=== PATIENT | female | born 1965 | race Caucasian/White ===

== ENCOUNTER → 2018-04-21 | Outpatient (CLI) | payer BC ==
--- NOTE | 2018-04-21 13:08 | US ---
EXAMINATION TYPE: US abdomen complete DATE OF EXAM: 04/21/2018 COMPARISON: NONE CLINICAL HISTORY: R10.11 Rt Upper Quadrant Pain. RUQ pain for a few days, patient has limited her int kaylah of food and drinking lots of water EXAM MEASUREMENTS: Liver Length: 13.8 cm Gallbladder Wall: 0.2 cm CBD: 0.3 cm Spleen: 14.9 cm Right Kidney: 11.0 x 5.2 x 6.1 cm Left Kidney: 11.9 x 5.6 x 5.9 cm large body habitus Pancreas: not seen due to bowel gas and habitus Liver: enlarged and difficult to penetrate Gallbladder: multiple stone seen with no wall thickening Evidence for sonographic Osrensen's sign: no CBD: wnl Spleen: enlarged Right Kidney: wnl Left Kidney: wnl Upper IVC: wnl Abd Aorta: unable to assess due to bowel gas and habitus tech impression given to Dr Mcgill office IMPRESSION: 1. Limited exam due to bowel gas. 2. Cholelithiasis 3. Remaining Portions of the abdomen visualized appear unremarkable.
== END | disposition home or self-care (01) ==
LOC: RADUSWWP 11:38
PROVIDERS: ATTEND Family Medicine
DX: K80.20 Calculus of gallbladder without cholecystitis without obstruction (principal)
CPT/HCPCS: 76700

== ENCOUNTER → 2018-05-04 | Outpatient (CLI) | payer BC | END | disposition home or self-care (01) | LOC: LABWHC1 12:13 | PROVIDERS: ATTEND Surgery Plastic and Reconstructive Surgery | DX: Z01.818 Encounter for other preprocedural examination (principal) | CPT/HCPCS: 36415; 93005 ==

== ENCOUNTER 2018-05-12 12:13 | Day surgery (SDC) | payer BC ==
[2018-05-09 08:50] VITALS: BMI 54.7
--- NOTE | 2018-05-12 09:39 | P.GSHP ---
History of Present Illness H&P Date: 05/12/18 CHIEF COMPLAINT: Cholecystitis HISTORY OF PRESENT ILLNESS: The patient is a 52-year-old female who presents with history of epigastric including right upper quadrant abdominal pain. She underwent diagnostic studies for her gallbladder. Separately her clinical picture was consistent with cholecystitis. Now she presents for surgical intervention. PAST MEDICAL HISTORY: Please see list PAST SURGICAL HISTORY: Please see list MEDICATIONS: Please see list ALLERGIES: Denies. SOCIAL HISTORY: No illicit drug use FAMILY HISTORY: Pertinent for gallbladder disease REVIEW OF ORGAN SYSTEMS: CONSTITUTIONAL: No reports of fevers or chills. HEENT: Denies any troubles with the vision or hearing. RESPIRATORY: No recent pneumonias. CARDIOVASCULAR: Denies chest pain or palpitations GI: No blood in stools or constipation. MUSCULOSKELETAL: Has occasional joint pain including back pain. NEURO: No seizure disorders or headaches. No recent stroke. PSYCH: No depression or suicidal ideation. HEMATOLOGIC: No personal or family history of DVTs or pulmonary emboli. PHYSICAL EXAM: VITAL SIGNS: Afebrile vital signs stable GENERAL: Well-developed pleasant in no acute distress. HEENT: No scleral icterus. Extraocular movements grossly intact. Moist buccal mucosa. NECK: Supple without lymphadenopathy. CHEST: Unlabored respirations. Equal bilateral excursions. CARDIOVASCULAR: Regular rate regular rhythm rhythm. Distal 2+ pulses. ABDOMEN: Soft, nondistended. Tender along the epigastrium and right upper quadrant. MUSCULOSKELETAL: No clubbing, cyanosis, or edema. NEURO: Cranial nerves II to XII within normal limits. No focal or lateralizing signs. PSYCH: Alert and oriented to person, place and time. ASSESSMENT: 1. Epigastric and right upper quadrant abdominal pain 2. Chronic cholecystitis 3. Symptomatic gallstones. PLAN: 1. Will need a robotic cholecystectomy possible open. Benefits and risks were described. 2. Heparin for DVT prophylaxis 5000 units. 3. Antibiotic prophylaxis. Past Medical History Past Medical History: Eye Disorder, Sleep Apnea/CPAP/BIPAP Additional Past Medical History / Comment(s): Bilateral glaucoma, recent SOB and difficulty swallowing due to sinus infection, finishing antibiotic today, feeling better, Dr Whiteside aware. Has CPAP but not using. History of Any Multi-Drug Resistant Organisms: None Reported Past Surgical History: No Surgical Hx Reported, Orthopedic Surgery Additional Past Surgical History / Comment(s): Colonoscopy, bone spurs removed from right heel, bilateral carpal tunnel surgery. Past Anesthesia/Blood Transfusion Reactions: No Reported Reaction Past Psychological History: No Psychological Hx Reported Smoking Status: Never smoker Past Alcohol Use History: None Reported Past Drug Use History: None Reported - Past Family History Mother Family Medical History: Cancer Additional Family Medical History / Comment(s): Leukemia Father Family Medical History: Myocardial Infarction ([place]) Brother(s) Family Medical History: Diabetes Mellitus, Hyperlipidemia Sister(s) Family Medical History: COPD, Diabetes Mellitus Additional Family Medical History / Comment(s): Depression Medications and Allergies Home Medications Medication Instructions Recorded Confirmed Type Bimatoprost [Lumigan] 1 drop BOTH EYES BID 06/11/14 05/09/18 History Brimonidine Tartrate [Alphagan P] 1 drop BOTH EYES HS 06/11/14 05/09/18 History Clarithromycin 500 mg PO Q12H 05/09/18 05/09/18 History Allergies Allergy/AdvReac Type Severity Reaction Status Date / Time Penicillins Allergy Rash/Hives Verified 05/09/18 08:39 sulfamethoxazole Allergy Rapid Verified 05/09/18 08:39 [From Bactrim] Heart Rate
[~2018-05-12 12:13] MED LIST: ACETAMINOPHEN IV (For NPO) 1,000 MG in EMPTY BAG 1 BAG IVPB ONE; DEXAMETHASONE SOD PHOSPHATE 10 MG/ML 1 ML VIAL IV ONE; HEPARIN SODIUM,PORCINE 5,000 UNIT/ML 1 ML VIAL SQ ONE; INDOCYANINE GREEN 25 MG VIAL IV STA; LACTATED RINGERS 1,000 ML IV SCH; MIDAZOLAM 2 MG/2 ML VIAL IV PRN; ONDANSETRON 4 MG/2 ML VIAL IVP ONE; SCOPOLAMINE 1.5MG/72HR PATCH TRANSDERM ONE; SCOPOLAMINE 1.5MG/72HR PATCH TRANSDERM STA; fentaNYL (PF) 50 MCG/ML 2 ML AMP IV PRN
[2018-05-12] MEDS ORDERED: LIDOCAINE 1% 20 ML VIAL (10MG/ML) FOR IV START INTRADERMA ONE ×2 (14:27)
[2018-05-12 14:32] LABS: Basophils % (A) 0 %; Eosinophils # (A) 0.1 k/uL (0-0.7); Eosinophils % (A) 1 %; HGB 12.3 gm/dL (11.4-16.0); Lymphocytes # (A) 1.5 k/uL (1.0-4.8); Lymphocytes % (A) 25 %; MCHC 32.4 g/dL (31.0-37.0); MCV 77.2 fL (80.0-100.0); Mean Platelet Volume 6.8; Monocytes # (A) 0.4 k/uL (0-1.0); Monocytes % (A) 6 %; Neutrophils % (A) 66 %; Platelet Count 312 k/uL (150-450); RBC 4.92 m/uL (3.80-5.40); RDW 13.9 % (11.5-15.5); WBC 6.1 k/uL (3.8-10.6)
[2018-05-12 14:42] LABS: ALT 49 U/L (9-52); AST 39 U/L (14-36); Albumin 4.5 g/dL (3.5-5.0); Alkaline Phosphatase 73 U/L (38-126); Anion Gap 11 mmol/L; Blood Urea Nitrogen 8 mg/dL (7-17); Calcium 9.5 mg/dL (8.4-10.2); Carbon Dioxide 27 mmol/L (22-30); Chloride 104 mmol/L (98-107); Glucose 97 mg/dL (74-99); Potassium 4.1 mmol/L (3.5-5.1); Sodium 142 mmol/L (137-145); Total Bilirubin 0.3 mg/dL (0.2-1.3); Total Protein 7.1 g/dL (6.3-8.2)
[2018-05-12] MEDS ORDERED: SUCCINYLCHOLINE CHLORIDE 100 MG/5 ML SYR IV ONE (15:49)
[2018-05-12] MEDS ORDERED: fentaNYL (PF) 50 MCG/ML 2 ML AMP ONE (15:49)
[2018-05-12] MEDS ORDERED: PROPOFOL 10 MG/ML 20 ML VIAL IV ONE (15:49)
[2018-05-12] MEDS ORDERED: LIDOCAINE 1% INJ 10MG/ML (20 ML MDV) ONE (15:49)
[2018-05-12] MEDS ORDERED: HYDROmorphone (PF) 1 MG/ML ONE (15:49)
[2018-05-12] MEDS ORDERED: VECURONIUM 10 MG VIAL IV ONE (15:49)
[2018-05-12] MEDS ORDERED: LACTATED RINGERS 1,000 ML IV ONE (15:49)
[2018-05-12] MEDS ORDERED: GLYCOPYRROLATE 0.2 MG/ML 2 ML VIAL ONE (15:49)
[2018-05-12] MEDS ORDERED: MIDAZOLAM 2 MG/2 ML VIAL ONE (15:49)
[2018-05-12] MEDS ORDERED: NEOSTIGMINE 1 MG/ML 10 ML VIAL ONE (15:49)
[2018-05-12] MEDS ORDERED: LIDOCAINE 1% INJ 10MG/ML (20 ML MDV) SQ ONE (16:13)
--- NOTE | 2018-05-12 18:20 | P.OP ---
Date of Procedure: 05/12/18 Description of Procedure: SURGEON: MCKENZIE SCHMIDT MD PREOPERATIVE DIAGNOSES: 1. Symptomatic gallstones 2. Cholecystitis 3. Morbid obesity due to excess calories, BMI 54.8 4. Obstructive sleep apnea POSTOPERATIVE DIAGNOSES: 1. Symptomatic gallstones 2. Acute gangrenous cholecystitis due to cystic duct obstruction 3. Morbid obesity due to excess calories, BMI 54.8 4. Obstructive sleep apnea 5. Severe hepatomegaly adding complexity to the case 6. Fatty liver disease OPERATION: Robotic-assisted da Joel Xi laparoscopic cholecystectomy, multiport with FIREFLY ESTIMATED BLOOD LOSS: 10 mL. SPECIMENS REMOVED: Gallbladder, anaerobic and aerobic culture COMPLICATIONS: None. OPERATIVE FINDINGS: 1. Severe hepatomegaly adding complexity to the case 2. Moderate intrahepatic gallbladder 3. Contaminated case 4. Cholecystectomy performed at infundibulum with 45 mm green robotic stapler load 5. Gangrenous gallbladder wall along the hepatic bed requiring dome down technique for resection INDICATIONS: The patient is a 52-year-old female who presents with symptomatic gallstones. Surgical intervention with a laparoscopic cholecystectomy was described at length including injury to the biliary tree, bleeding, infection, need for further surgery. Informed consent was obtained. Robotic assisted laparoscopic approach was described. Benefits and risks of the procedure including but not limited to bleeding, infection, injury to the biliary tree was described. Informed consent was obtained. DESCRIPTION OF PROCEDURE: Patient was brought to the operating room, placed in supine position. After general induction, the abdomen had been prepped and draped in standard sterile fashion. The robotic da Joel XI system was primed. After a timeout protocol was performed, the patient had been prepped and draped in standard sterile fashion. The patient was injected with indocyanine green. A 5 mm 0 degrees laparoscopic trocar entry was performed along the left upper quadrant. The abdomen insufflated to 15 mmHg pressure which she tolerated well. Diagnostic laparoscopy demonstrated no injury to bowel viscera or mesentery. Severe hepatomegaly with fatty liver disease was identified as the gallbladder was completely obscured. Moderate intra-abdominal omental fat was found. Next, two 8 mm robotic ports were placed along the right upper abdomen. The camera 8-mm port was maintained along the epigastrium. Another 8 mm port was placed along the left upper abdominal wall after exchanging the 5 mm port. Please note that the ports were placed at least 10 to 15 cm away from the target anatomy of the gallbladder. The robot was docked along the left lateral abdomen. The patient was repositioned in reverse Trendelenburg position at 20 degrees. Using a grasper for arm 3, a grasper for arm 4, including hook cautery for arm 1 , the robotic system was docked and primed as described. Instruments were interchanged by the assistant grocery including hook cautery, Bovie cautery and clip appliers. I had sat at the console. Adhesions were identified along the infundibulum of the gallbladder and addressed using hook cautery. The severe hepatomegaly and fatty liver disease prohibited retraction of the gallbladder over the dome of the liver. Separately, a very contracted gallbladder wall with acute cholecystitis and gangrenous added complexity to her case over 45 minutes. The right liver edge was retracted portion abdominal wall. The cystic structures were completely obscured with edematous infundibulum and fatty tissue. A dome down technique was performed removing the gallbladder from the hepatic fossa. Additionally the gallbladder was intrahepatic adding complexity to her case. Iatrogenic decompression of the gallbladder occurred. A gangrenous posterior wall of the gallbladder was confirmed. The gallbladder was mobilized to the infundibulum. The port along the left upper quadrant was exchanged for a 12 mm port. A green 45 mm robotic stapler was used to divide the gallbladder at the infundibulum. Electro-Bovie cautery was used to remove the gallbladder from the hepatic fossa. Hemostasis was checked and found to be adequate. The abdomen was irrigated with 1 L normal saline until solution was clear. The robot was undocked. I re-scrubbed into the case. Using a 10 mm Endo Catch bag via the left upper quadrant incision, the specimen was removed from the abdominal cavity. All pneumoperitoneum instruments were evacuated from the abdominal cavity. The incisions were reapproximated using 4-0 Monocryl in an interrupted subcuticular fashion. Fascial defects were less than 8 mm in size. Please note along the trocar sites, local anesthetic was placed as a field block prior to insertion of all instruments. The skin was cleansed with dilute hydrogen peroxide. Liquid glue was applied to the skin. Optifoam dressing was placed along the left upper quadrant. At the end of the procedure needle, sponge, and instrument count had been verified correct by the surgical resident. The patient was transferred to postanesthesia care unit in stable condition. Intraoperative findings were described to the patient's family whereby she will be on prolonged antibiotics. Console time 70 minutes Plan - Discharge Summary Discharge Rx Participant: Yes New Discharge Prescriptions: New HYDROcodone/APAP 5-325MG [[place] 5-325] 1 tab PO Q4HR PRN 3 Days #18 tab PRN Reason: Pain Levofloxacin [Levaquin] 750 mg PO DAILY 3 Days #5 tab metroNIDAZOLE [Flagyl] 500 mg PO TID #15 tab No Action Bimatoprost [Lumigan] 1 drop BOTH EYES BID Brimonidine Tartrate [Alphagan P] 1 drop BOTH EYES HS Discharge Medication List Bimatoprost [Lumigan] 1 drop BOTH EYES BID 06/11/14 [History] Brimonidine Tartrate [Alphagan P] 1 drop BOTH EYES HS 06/11/14 [History] HYDROcodone/APAP 5-325MG [[place] 5-325] 1 tab PO Q4HR PRN 3 Days #18 tab [Rx] Levofloxacin [Levaquin] 750 mg PO DAILY 3 Days #5 tab 05/12/18 [Rx] metroNIDAZOLE [Flagyl] 500 mg PO TID #15 tab 05/12/18 [Rx] Follow up Appointment(s)/Referral(s): Mckenzie Schmidt MD [STAFF PHYSICIAN] - 05/17/18 Activity/Diet/Wound Care/Special Instructions: No lifting over 4 pounds in 2 weeks. May shower. No bath tub soaks. Take antibiotic as prescribed Discharge Disposition: HOME SELF-CARE
[2018-05-12 18:36] VITALS: RESP 16; TEMP 98
[2018-05-12] MEDS ORDERED: ONDANSETRON 4 MG/2 ML VIAL IVP ONE (20:30)
[2018-05-12 20:46] VITALS: BP 142/68; PULSE 90
== END 2018-05-12 21:20 | disposition home or self-care (01) ==
LOC: OR 12:13
PROVIDERS: ATTEND Surgery Plastic and Reconstructive Surgery
DX: K80.12 Calculus of gallbladder with acute and chronic cholecystitis without obstruction (principal); H40.9 Unspecified glaucoma; E66.01 Morbid (severe) obesity due to excess calories; Z68.43 Body mass index [BMI] 50.0-59.9, adult; K76.0 Fatty (change of) liver, not elsewhere classified; K66.0 Peritoneal adhesions (postprocedural) (postinfection); G47.33 Obstructive sleep apnea (adult) (pediatric); Z99.89 Dependence on other enabling machines and devices; Z79.899 Other long term (current) drug therapy; Z88.0 Allergy status to penicillin; Z88.2 Allergy status to sulfonamides
CPT/HCPCS: 80053; 85025; 84703; 87070; 87205; 87075; 47562; J2250; J1644; J1100; J2710; J0690; J2405; J2001; J3010; J1170; J0131; J0330; J2704; 88304

== ENCOUNTER → 2018-11-02 | Outpatient (CLI) | payer BC ==
--- NOTE | 2018-11-03 11:32 | MM ---
Reason for exam: screening (asymptomatic). Last mammogram was performed 2 years and 1 month ago. History: Patient is postmenopausal and is nulliparous. Physical Findings: A clinical breast exam by your physician is recommended on an annual basis and results should be correlated with mammographic findings. MG 3D Screening Mammo W/Cad Bilateral CC and MLO view(s) were taken. Prior study comparison: October 15, 2016, bilateral MG screening mammo w CAD. May 22, 2015, bilateral MG screening mammo w CAD. There are scattered fibroglandular densities. There is chronic nodularity bilaterally. There is no discrete abnormality. ASSESSMENT: Benign, BI-RAD 2 RECOMMENDATION: Routine screening mammogram of both breasts in 1 year.
== END | disposition home or self-care (01) ==
LOC: RADMAMWWP 11:00
PROVIDERS: ATTEND Family Medicine
DX: Z12.31 Encounter for screening mammogram for malignant neoplasm of breast (principal)
CPT/HCPCS: 77063; 77067

== ENCOUNTER → 2019-12-07 | Outpatient (CLI) | payer BC ==
--- NOTE | 2019-12-08 10:49 | MM ---
Reason for exam: screening (asymptomatic). Last mammogram was performed 1 year and 1 month ago. History: Patient is postmenopausal and is nulliparous. Physical Findings: A clinical breast exam by your physician is recommended on an annual basis and results should be correlated with mammographic findings. MG Screening Mammo w CAD Bilateral CC, MLO, and XCCL view(s) were taken. Prior study comparison: November 02, 2018, bilateral MG 3d screening mammo w/cad. October 15, 2016, bilateral MG screening mammo w CAD. The breast tissue is almost entirely fat. There are benign appearing round calcifications in the right breast. There is chronic nodularity bilaterally. ASSESSMENT: Benign, BI-RAD 2 RECOMMENDATION: Routine screening mammogram of both breasts in 1 year.
== END | disposition home or self-care (01) ==
LOC: RADMAMWWP 11:17
PROVIDERS: ATTEND Family Medicine
DX: Z12.31 Encounter for screening mammogram for malignant neoplasm of breast (principal)
CPT/HCPCS: 77067

== ENCOUNTER → 2020-01-11 | Outpatient (CLI) | payer BC ==
--- NOTE | 2020-01-12 07:18 | US ---
EXAMINATION TYPE: US pelvis complete transvag DATE OF EXAM: 01/11/2020 COMPARISON: NONE CLINICAL HISTORY: N95.0 Post Menopausal Bleeding. Patient stated had several weeks in November and a c ouple of weeks in December 2019 with post menopausal bleeding; she thought she had been on antibiotic then; not taking hormones; G0 TECHNIQUE: Transvaginal (TV) and Transabdominal (TA) . Transabdominal sonographic images of the pel vis were acquired. Transvaginal sonographic images were medically necessary to better assess the fol lowing anatomy: endometrium Date of LMP: post menopause per patient EXAM MEASUREMENTS: Uterus and ovaries were not seen on TA US. Uterus: 7.0 x 4.0 x 3.3 cm Endometrial Stripe: 1.0 cm Right Ovary: 1.9 x 1.8 x 1.3 cm Left Ovary: 1.9 x 1.8 x 1.2 cm 1. Uterus: anteflexed; couple of small Nabothian Cysts seen in cervix 2. Endometrium: hyperechoic, oval focus noted in upper endometrium with measure of 0.4 x 0.5 x 0.4cm ; abnormally thickened endometrium for post menopausal patient as measures greater than 5.0mm. 3. Right Ovary: wnl 4. Left Ovary: wnl 5. Bilateral Adnexa: wnl 6. Posterior cul-de-sac: wnl IMPRESSION: Abnormal endometrial thickening for a postmenopausal female measuring 1.0 cm. Additionall y there is a hyperechoic oval focus in the upper endometrium measuring 5 mm that could represent a po lyp. Direct visualization and percutaneous sampling are recommended.
== END | disposition home or self-care (01) ==
LOC: RADUSMAIN 17:35
PROVIDERS: ATTEND Family Medicine
DX: N95.0 Postmenopausal bleeding (principal); R93.89 Abnormal findings on diagnostic imaging of other specified body structures
CPT/HCPCS: 76830; 76856

== ENCOUNTER → 2022-01-19 | Outpatient (CLI) | payer BC ==
--- NOTE | 2022-01-21 12:41 | MM ---
Reason for exam: screening (asymptomatic). Last mammogram was performed 2 years and 1 month ago. History: Patient is postmenopausal and is nulliparous. Physical Findings: A clinical breast exam by your physician is recommended on an annual basis and results should be correlated with mammographic findings. MG Screening Mammo w CAD Bilateral CC, MLO, and XCCL view(s) were taken. Prior study comparison: December 07, 2019, bilateral MG screening mammo w CAD. November 02, 2018, bilateral MG 3d screening mammo w/cad. The breast tissue is almost entirely fat. There is chronic nodularity bilaterally. No significant changes when compared with prior studies. ASSESSMENT: Benign, BI-RAD 2 RECOMMENDATION: Routine screening mammogram of both breasts in 1 year.
== END | disposition home or self-care (01) ==
LOC: RADMAMWWP 13:12
PROVIDERS: ATTEND Family Medicine
DX: Z12.31 Encounter for screening mammogram for malignant neoplasm of breast (principal); Z78.0 Asymptomatic menopausal state
CPT/HCPCS: 77067

== ENCOUNTER → 2022-05-11 | Outpatient (CLI) | payer BC ==
--- NOTE | 2022-05-11 14:56 | US ---
EXAMINATION TYPE: US transvaginal DATE OF EXAM: 05/11/2022 COMPARISON: US CLINICAL HISTORY: N95.0 POSTMENOPAUSAL BLEEDING. Pt states episode of vaginal bleeding, pt states bryn e episode of vaginal bleeding happened in 2019 TECHNIQUE: Transvaginal (TV). Transvaginal sonographic images of the pelvis were acquired- Morbidly obese pt, blader not full enough for TA Date of LMP: Pt states 10 years ago EXAM MEASUREMENTS: Uterus: 6.1 x 3.2 x 4.4 cm Endometrial Stripe: 1.0 cm Left Ovary: 2.2 x 1.3 x 2.4 cm 1. Uterus: Anteverted Heterogeneous 2. Endometrium: Thickened for postmenopausal bleeding 3. Right Ovary: Obscured by overlying bowel gas 4. Left Ovary: wnl 5. Bilateral Adnexa: wnl 6. Posterior cul-de-sac: wnl IMPRESSION: 1. Prominent endometrial stripe of 1.0 cm postmenopausal.
== END | disposition home or self-care (01) ==
LOC: RADUSWWP 12:11
PROVIDERS: ATTEND Family Medicine
DX: N95.0 Postmenopausal bleeding (principal)
CPT/HCPCS: 76830

== ENCOUNTER → 2022-08-03 | Outpatient (CLI) | payer BC ==
[2022-08-03 18:03] LABS: Basophils # (A) 0.03 X 10*3/uL (0.00-0.10); Basophils % (A) 0.4 %; Eosinophils # (A) 0.03 X 10*3/uL (0.04-0.35); Eosinophils % (A) 0.4 %; HCT 39.6 % (37.2-46.3); HGB 12.3 g/dL (12.0-15.0); Immature Grans, Automated 0.3 %; Lymphocytes # (A) 1.98 X 10*3/uL (0.90-5.00); MCH 25.4 pg (27.0-32.0); MCHC 31.1 g/dL (32.0-37.0); MCV 81.6 fL (80.0-97.0); Monocytes # (A) 0.48 X 10*3/uL (0.20-1.00); Monocytes % (A) 6.6 %; NRBC Per 100 WBC 0 /100 WBCS (0.0-0.0); Neutrophils # (A) 4.78 X 10*3/uL (1.80-7.70); Neutrophils % (A) 65.3 %; Platelet Count 342 X 10*3/uL (140-440); RBC 4.85 X 10*6/uL (4.10-5.20); RDW 13.6 % (11.5-14.5); WBC 7.32 X 10*3/uL (4.50-10.00)
== END | disposition home or self-care (01) ==
LOC: LABPAT 12:05
PROVIDERS: ATTEND Obstetrics & Gynecology
DX: Z01.812 Encounter for preprocedural laboratory examination (principal)
CPT/HCPCS: 85025; 93005

== ENCOUNTER 2022-08-13 06:22 | Day surgery (SDC) | payer BC ==
--- NOTE | 2022-08-12 13:26 | P.HPOB ---
History of Present Illness H&P Date: 08/12/22 Chief Complaint: Postmenopausal bleeding, endometrial thickening This is a 57 y.o. female, 0, who presents for dilatation and curettage with hysteroscopy due to postmenopausal bleeding and endometrial thickening. She stated she had the bleeding in January and again in February and each time it lasted about 4-5 days. She also had some cramping and pelvic pain on both sides at the time. She had been on steroids for a upper respiratory infection around that time. She had the same thing happen a couple years ago and biopsy was negative. Pelvic ultrasound showed uterus measuring 6.1 x 3.2 x 4.4 cm, with an endometrial thickness of 10 mm. Left ovary was normal and right ovary was not visualized. OB Hx: G0. Sap Developer Hx: No hx of STDs. Social Hx: . Works for [employer]. Review of Systems Constitutional: Denies chills, Denies fever Eyes: denies blurred vision, denies pain Ears, nose, mouth and throat: Denies headache, Denies sore throat Cardiovascular: Denies chest pain, Denies shortness of breath Respiratory: Denies cough Gastrointestinal: Denies abdominal pain, Denies diarrhea, Denies nausea, Denies vomiting Genitourinary: Reports abnormal vaginal bleeding, Reports pelvic pain Menstruation: Reports postmenopausal Musculoskeletal: Denies myalgias Integumentary: Denies pruritus, Denies rash Neurological: Denies numbness, Denies weakness Psychiatric: Denies anxiety, Denies depression Past Medical History Past Medical History: Diabetes Mellitus, Eye Disorder, Hyperlipidemia, Respiratory Disorder Additional Past Medical History / Comment(s): glaucoma was dx as type 2 diabetes tests at home daily sugars stay between 102-136 in am fasting, has scrpit for jardiance 25 mg daily but does not feel she needs it so is not taking currently, hx bronchitis, hiatal hernia History of Any Multi-Drug Resistant Organisms: None Reported Past Surgical History: Cholecystectomy Additional Past Surgical History / Comment(s): bone spurs rt heel,bibiana carapal tunnel, laser eye surgery Past Anesthesia/Blood Transfusion Reactions: No Reported Reaction Past Psychological History: No Psychological Hx Reported Smoking Status: Never smoker, Second hand smoke exposure Past Alcohol Use History: None Reported Past Drug Use History: None Reported - Past Family History Father Family Medical History: Eye Disorder, Myocardial Infarction ([place]) Additional Family Medical History / Comment(s): passed mi 68 yrs glaucoma, Mother Family Medical History: Cancer Additional Family Medical History / Comment(s): passed from leukemia when pt was a child Medications and Allergies Home Medications Medication Instructions Recorded Confirmed Type Bimatoprost [Lumigan] 1 drop BOTH EYES BID 06/11/14 08/13/22 History Brimonidine Tartrate [Alphagan P] 1 drop BOTH EYES HS 06/11/14 08/13/22 History Atorvastatin [Lipitor] 20 mg PO HS 08/05/22 08/13/22 History Cetirizine HCl [Zyrtec] 10 mg PO DAILY PRN 08/05/22 08/13/22 History Meloxicam [Mobic] 15 mg PO DAILY 08/05/22 08/13/22 History Allergies Allergy/AdvReac Type Severity Reaction Status Date / Time Penicillins Allergy Rash/Hives Verified 08/13/22 06:50 sulfamethoxazole Allergy Rapid Verified 08/13/22 06:50 [From Bactrim] Heart Rate Exam Osteopathic Statement: *. No significant issues noted on an osteopathic structural exam other than those noted in the History and Physical/Consult. HEENT: within normal limits Heart: regular rate and rhythm Lungs: clear to auscultation bilaterally Abdomen: soft, non-tender Pelvic: deferred to OR Extremities: negative Najma's Assessment and Plan (1) Postmenopausal bleeding Current Visit: No Status: Acute Code(s): N95.0 - POSTMENOPAUSAL BLEEDING SNOMED Code(s): 68360650 (2) Endometrial thickening on ultrasound Current Visit: No Status: Acute Code(s): R93.89 - ABNORMAL FINDINGS ON DX IMAGING OF OTH BODY STRUCTURES SNOMED Code(s): 731263831 Plan: Proceed with dilatation and curettage with hysteroscopy. I have discussed the risks, benefits, and alternative therapies for the above- mentioned procedure and for both sedation/anesthesia as well as necessary blood products administration, if indicated, as they pertain to this patient. The patient has indicated her understanding and acceptance of the risks and procedures discussed.
[~2022-08-13 06:22] MED LIST changes: -ACETAMINOPHEN IV (For NPO) 1,000 MG in EMPTY BAG 1 BAG IVPB ONE; -DEXAMETHASONE SOD PHOSPHATE 10 MG/ML 1 ML VIAL IV ONE; +DEXAMETHASONE SOD PHOSPHATE 4 MG/ML 1 ML VIAL IV ONE; -HEPARIN SODIUM,PORCINE 5,000 UNIT/ML 1 ML VIAL SQ ONE; -INDOCYANINE GREEN 25 MG VIAL IV STA; -LACTATED RINGERS 1,000 ML IV SCH; +LIDOCAINE 1% (10MG/ML) FOR IV START INTRADERMA PRN; -MIDAZOLAM 2 MG/2 ML VIAL IV PRN; +Pre Op ABX Message 1 EACH MISC MISCELLANE ONE; +SCOPOLAMINE 1 MG/72 HR PATCH TRANSDERM ONE; -SCOPOLAMINE 1.5MG/72HR PATCH TRANSDERM ONE; -SCOPOLAMINE 1.5MG/72HR PATCH TRANSDERM STA; -fentaNYL (PF) 50 MCG/ML 2 ML AMP IV PRN
[2022-08-13] MEDS: LACTATED RINGERS 1,000 ML IV SCH ×2 (06:59→07:27)
[2022-08-13] MEDS ORDERED: HYDROmorphone 0.5 MG/0.5 ML SYRINGE IVP PRN (07:00)
[2022-08-13 07:05] LABS: Glucose,Whole Blood 81 mg/dL (70-110)
[2022-08-13] MEDS ORDERED: MIDAZOLAM 2 MG/2 ML VIAL ONE (07:24)
[2022-08-13] MEDS ORDERED: KETOROLAC 30 MG/ML 1 ML VIAL ONE (07:24)
[2022-08-13] MEDS ORDERED: LIDOCAINE 2% INJ 20 MG/ML (2 ML VIAL) ONE (07:24)
[2022-08-13] MEDS ORDERED: fentaNYL (PF) 50 MCG/ML 2 ML AMP ONE (07:24)
[2022-08-13] MEDS ORDERED: SUCCINYLCHOLINE CHLORIDE 200 MG/10 ML VIAL IV ONE (07:24)
[2022-08-13] MEDS ORDERED: PROPOFOL 10 MG/ML 20 ML VIAL IV ONE (07:24)
--- NOTE | 2022-08-13 07:59 | P.OP ---
Date of Procedure: 08/13/22 Preoperative Diagnosis: Postmenopausal bleeding Endometrial thickening Postoperative Diagnosis: Same Procedure(s) Performed: Dilation and curettage with hysteroscopy Anesthesia: GE Surgeon: Kristin Payne Estimated Blood Loss (ml): 3 Pathology: other (Endometrial curettings) Condition: stable Disposition: same day Indications for Procedure: This is a 57 y.o. female, 0, who presents for dilatation and curettage with hysteroscopy due to postmenopausal bleeding and endometrial thickening. She stated she had the bleeding in January and again in February and each time it lasted about 4-5 days. She also had some cramping and pelvic pain on both sides at the time. She had been on steroids for a upper respiratory infection around that time. She had the same thing happen a couple years ago and biopsy was negative. Pelvic ultrasound showed uterus measuring 6.1 x 3.2 x 4.4 cm, with an endometrial thickness of 10 mm. Left ovary was normal and right ovary was not visualized. Operative Findings: Uterus is small, anteverted, with no adnexal masses palpated. Uterus is sounded to 7 cm. Upon hysteroscopy, a atrophic endometrial background was noted but a large polyp was visualized. Both tubal ostia are visualized. Very scant endometrial curettings were obtained. A large polyp was removed. Description of Procedure: The patient was taken to the operating room where she is placed in the dorsal lithotomy position. She is prepped and draped in the normal sterile fashion. Her bladder is drained with a catheter. Examination is performed under anesthesia. Uterus is found to be small, anteverted, with no adnexal masses palpated. A weighted speculum was placed in the patient's vagina. A right angle retractor was used to visualize the cervix. The anterior lip of the cervix is grasped with a long Allis clamps. The uterus is sounded to 7 cm. The cervix is gently dilated with Bee dilators until a hysteroscope could be passed. Hysteroscopy is performed using normal saline. The above-noted findings are made and pictures are taken. Next the cervix is gently dilated further and a polyp forceps is introduced. A large polyp is removed approximately 3 cm length. Next a medium-size sharp curet was introduced and sharp curettage was performed until a gritty texture is noted. Very minimal further tissue was obtained. Next the specimen is removed from the field. Allis clamp was removed. No active bleeding is noted. All instruments are removed from the vagina. The patient is then taken to recovery room in stable condition
[2022-08-13 08:21] VITALS: TEMP 97.3
[2022-08-13] MEDS ORDERED: SODIUM CHLORIDE 0.9% 1,000 ML IV ONE (08:49)
[2022-08-13 09:55] VITALS: RESP 18
[2022-08-13 09:56] VITALS: BP 177/81; PULSE 87
== END 2022-08-13 10:18 | disposition home or self-care (01) ==
LOC: OR 06:22
PROVIDERS: ATTEND Obstetrics & Gynecology
DX: N84.0 Polyp of corpus uteri (principal); N95.0 Postmenopausal bleeding; R93.89 Abnormal findings on diagnostic imaging of other specified body structures; E11.9 Type 2 diabetes mellitus without complications; E78.5 Hyperlipidemia, unspecified; Z86.69 Personal history of other diseases of the nervous system and sense organs; Z87.09 Personal history of other diseases of the respiratory system; Z79.1 Long term (current) use of non-steroidal anti-inflammatories (NSAID); Z88.0 Allergy status to penicillin; Z88.1 Allergy status to other antibiotic agents
CPT/HCPCS: 58558; 88305; J2250; J0330; J1100; J2405; J3010; J1885; J2704; J2001

== ENCOUNTER → 2022-09-01 | Outpatient (CLI) | payer BC ==
--- NOTE | 2022-09-01 17:39 | BD ---
EXAMINATION TYPE: Axial Bone Density DATE OF EXAM: 09/01/2022 COMPARISON: NONE CLINICAL HISTORY: 57 years year old Female. ICD-10 CODE: N95.1 MENOPAUSAL AND FEMALE CLIMACTERIC STA RHIANNON Height: 63 IN Weight: 305 LBS FRAX RISK QUESTIONS: Family History (Parent hip fracture): YES FATHER RISK FACTORS HISTORY OF: Active: MODERATE Diet low in dairy products/other sources of calcium: YES Postmenopausal woman: AGE 47 MEDICATIONS: Additional Medications: ARTHRITIS MEDS, CHOLESTEROL MEDS, GLAUCOMA MEDS, EXAM MEASUREMENTS: Bone mineral densitometry was performed using the Archive System. Bone mineral density as measured about the Lumbar spine is: ----- L1-L4(G/cm2): 1.381 T Score Values are as follows: ----- L1: 2.0 ----- L2: 1.4 ----- L3: 1.8 ----- L4: 1.4 ----- L1-L4: 1.7 Bone mineral density BASELINE Bone mineral density about the R hip (g/cm2): 0.867 Bone mineral density about the L hip (g/cm2): 0.961 T Score values are as follows: -----R Neck: -1.2 -----L Neck: -0.6 -----R Total: 0.3 -----L Total: -0.9 Bone mineral density BASELINE FRAX%s: The graph provided illustrates a 11.4 chance for a major osteoporotic fx and a 0.3 chance for the hips probability for fx in 10 years time. IMPRESSION: Osteopenia (T Score between -2.5 and -1). There is slightly increased risk of fracture and the patient may be considered for treatment. Re-Screen 2-5 years. NOTE: T-SCORE=SD OF THE YOUNG ADULT MEAN.
== END | disposition home or self-care (01) ==
LOC: RADBDWWP 09:16
PROVIDERS: ATTEND Obstetrics & Gynecology
DX: M85.89 Other specified disorders of bone density and structure, multiple sites (principal)
CPT/HCPCS: 77080

== ENCOUNTER → 2023-02-23 | Outpatient (CLI) | payer BC ==
[2023-02-23 21:56] LABS: EBV-EA (IgG) 0.9 AI; EBV-EBNA(IgG) >8.0 AI; EBV-VCA (IgG) >8.0 AI; EBV-VCA (IgM) 0.3 AI
[2023-02-24 09:43] LABS: Angiotensin-1 Converting Enz. 42 U/L (8-52)
[2023-02-24 10:51] LABS: Lyme IgG/IgM 2.15 Index
== END | disposition home or self-care (01) ==
LOC: LABWHC1 10:56
PROVIDERS: ATTEND Ophthalmology
DX: H16.303 Unspecified interstitial keratitis, bilateral (principal)
CPT/HCPCS: 36415; 82164; 85549; 86480; 86618; 86663; 86664; 86665; 86780; 86787

== ENCOUNTER → 2023-03-02 | Outpatient (CLI) | payer BC ==
--- NOTE | 2023-03-02 21:17 | XR ---
EXAMINATION TYPE: XR chest 2V DATE OF EXAM: 03/02/2023 11:11 AM COMPARISON: None TECHNIQUE: XR chest 2V Frontal and lateral views of the chest. CLINICAL INDICATION:Female, 57 years old with history of H16.309; FINDINGS: Lungs/Pleura: There is no evidence of pleural effusion, focal consolidation, or pneumothorax. Pulmonary vascularity: Unremarkable. Heart/mediastinum: Cardiomediastinal silhouette is unremarkable. Musculoskeletal: No acute osseous pathology. IMPRESSION: No acute cardiopulmonary disease/process.
== END | disposition home or self-care (01) ==
LOC: RADXRMAIN 10:51
PROVIDERS: ATTEND Family Medicine
DX: H16.30 Unspecified interstitial keratitis (principal)
CPT/HCPCS: 71046

== ENCOUNTER → 2023-04-07 | Outpatient (CLI) | payer BC ==
--- NOTE | 2023-04-08 20:31 | MM ---
Reason for Exam: Screening (asymptomatic). Last mammogram was performed 1 year(s) and 2 month(s) ago. Patient History: Menarche at age 10. Patient has no children. Postmenopausal. Risk Values: Ronda 5 year model risk: 1.5%. NCI Lifetime model risk: 8.3%. Prior Study Comparison: 10/15/2016 Bilateral Screening Mammogram, [facility]. 11/02/2018 Bilateral Screening Mammogram, [facility]. 12/07/2019 Bilateral Screening Mammogram, [facility]. 01/19/2022 Bilateral Screening Mammogram, [facility]. Tissue Density: There are scattered fibroglandular densities. Findings: Analyzed By CAD. Chronic bilateral nodularity. There is no suspicious group of microcalcifications or new suspicious mass in either breast. Overall Assessment: Benign, BI-RAD 2 Management: Screening Mammogram of both breasts in 1 year. . Patient should continue monthly self-breast exams. A clinical breast exam by your physician is recommended on an annual basis. This exam should not preclude additional follow-up of suspicious palpable abnormalities. Note on Ronda scores and lifetime risk: 1. A Ronad score greater than 3% is considered moderate risk. If this is the case, consider specialist referral to assess eligibility for a risk reducing agent. 2. If overall lifetime risk for the development of breast cancer is 20% or higher, the patient may qualify for future screening with alternating mammogram and breast MRI. Electronically signed and approved by: Jenna Min M.D. Radiologist
== END | disposition home or self-care (01) ==
LOC: RADMAMWWP 13:14
PROVIDERS: ATTEND Family Medicine
DX: Z12.31 Encounter for screening mammogram for malignant neoplasm of breast (principal); Z78.0 Asymptomatic menopausal state
CPT/HCPCS: 77067

== ENCOUNTER → 2023-08-25 | Outpatient (CLI) | payer BC ==
[2023-08-25 19:44] LABS: Basophils # (A) 0.05 X 10*3/uL (0.00-0.10); Basophils % (A) 0.5 %; Eosinophils # (A) 0.04 X 10*3/uL (0.04-0.35); Eosinophils % (A) 0.4 %; HCT 41.6 % (37.2-46.3); HGB 12.8 d/dL (12.0-15.0); Lymphocytes # (A) 2.57 X 10*3/uL (0.90-5.00); Lymphocytes % (A) 27.2 %; MCH 25.2 pg (27.0-32.0); MCHC 30.8 d/dL (32.0-37.0); MCV 82.1 FL (80.0-97.0); Mean Platelet Volume 9.9 FL (9.5-12.2); Monocytes % (A) 5.3 %; NRBC Per 100 WBC 0 X 10*3/uL (0.00-0.01); Neutrophils # (A) 6.27 X 10*3/uL (1.80-7.70); Neutrophils % (A) 66.3 %; Platelet Count 360 X 10*3/uL (140-440); RBC 5.07 X 10*6/uL (4.10-5.20); RDW 12.7 % (11.5-14.5); WBC 9.46 X 10*3/uL (4.50-10.00)
[2023-08-25 21:36] LABS: Erythrocyte Sedimentation Rate 26 mm/Hr (0-30)
[2023-08-26 01:09] LABS: ALT 11 U/L (8-44); AST 17 U/L (13-35); Albumin 4.6 d/dL (3.8-4.9); Albumin/Globulin Ratio 1.77 Ratio (1.60-3.17); Alkaline Phosphatase 83 U/L (41-126); Blood Urea Nitrogen 7.2 mg/dL (9.0-27.0); Carbon Dioxide 27.7 mmol/L (21.6-31.8); Chloride 102 mmol/L (96-109); Globulin 2.6 d/dL (1.6-3.3); Glucose 89 mg/dL (70-110); Potassium 4.8 mmol/L (3.5-5.5); Sodium 141 mmol/L (135-145); Total Bilirubin 0.3 mg/dL (0.3-1.2); Total Protein 7.2 d/dL (6.2-8.2)
== END | disposition home or self-care (01) ==
LOC: LABWHC1 12:23
PROVIDERS: ATTEND Internal Medicine Gastroenterology
DX: K52.9 Noninfective gastroenteritis and colitis, unspecified (principal)
CPT/HCPCS: 36415; 80053; 83516; 85025; 85652; 86140

== ENCOUNTER → 2023-11-16 | Outpatient (CLI) | payer OTHER ==
--- NOTE | 2023-11-17 12:16 | CA ---
Transthoracic Echo Report Name: Ruperto Hickey Age: 58 Gender: F : 1965 Exam Date: 11/16/2023 13:09 Exam Location: [place] [facility] Ht (in): 64 Wt (lb): 255 Ordering Physician: Alberto Heller DO Attending/Referring Phys: Otto Rodriguez NPC Wildlife Photographer Lary Wagoner, RDJOAN Procedure CPT: Indications: R07.9 CHEST PAIN, UNSPECIFIED Cardiac Hx: high BP Technical Quality: Technically difficult study Contrast 1: Total Dose (mL): Contrast 2: Total Dose (mL): MEASUREMENTS (Male / Female) Normal Values 2D ECHO LV Diastolic Diameter PLAX 5.3 cm 4.2 - 5.9 / 3.9 - 5.3 cm LV Systolic Diameter PLAX 3.3 cm IVS Diastolic Thickness 1.3 cm 0.6 - 1.0 / 0.6 - 0.9 cm LVPW Diastolic Thickness 1.4 cm 0.6 - 1.0 / 0.6 - 0.9 cm LV Relative Wall Thickness 0.5 RV Internal Dim ED PLAX 3.5 cm LA Systolic Diameter LX 4.1 cm 3.0 - 4.0 / 2.7 - 3.8 cm M-MODE LV Diastolic Diameter MM 4.2 cm 4.2 - 5.9 / 3.9 - 5.3 cm IVS Diastolic Thickness MM 1.1 cm 0.6 - 1.0 / 0.6 - 0.9 cm LVPW Diastolic Thickness MM 1.2 cm 0.6 - 1.0 / 0.6 - 0.9 cm LV Relative Wall Thickness MM 0.6 0.24 - 0.42 / 0.22 - 0.42 LV Mass Index MM 75.7 g/m??? 49 - 115 / 43 - 95 g/m??? Aortic Root Diameter MM 3.4 cm LA Systolic Diameter MM 1.8 cm LA Ao Ratio MM 0.5 DOPPLER AV Peak Velocity 156.3 cm/s AV Peak Gradient 9.8 mmHg MV E' Velocity 8.2 cm/s TR Peak Velocity 295.3 cm/s TR Peak Gradient 34.9 mmHg Right Ventricular Systolic Press 51.0 mmHg FINDINGS Left Ventricle Left ventricular ejection fraction is estimated at 55 %. Left ventricular cavity size normal. Mildly increased left ventricular mass. Mildly increased septal wall thickness. Mildly increased posterior wall thickness. Right Ventricle Mild right ventricular dilatation. Moderate pulmonary hypertension. Right ventricular systolic pressure estimated at 48 mm hg. Right Atrium Normal right atrial size. Left Atrium Mildly increased left atrial diameter. Mitral Valve Structurally normal mitral valve. No mitral stenosis, or prolapse. Trace mitral regurgitation. Aortic Valve Trileaflet aortic valve. No aortic valve stenosis or regurgitation. Tricuspid Valve Structurally normal tricuspid valve. Mild tricuspid regurgitation. Pulmonic Valve Structurally normal pulmonic valve. No pulmonic regurgitation. Pericardium No pericardial effusion. Aorta Normal size aortic root and proximal ascending aorta. CONCLUSIONS Normal LV size preserved systolic function enlargement of the right ventricle noted with moderate pulmonary hypertension. Mild mitral and tricuspid insufficiency no pericardial effusion Previewed by: Dr. Ana Lilia Klein MD (Electronically Signed) Final Date: 17 November 2023 12:15
== END | disposition home or self-care (01) ==
LOC: RADECHMAIN 12:47
PROVIDERS: ATTEND Family Medicine
DX: I36.1 Nonrheumatic tricuspid (valve) insufficiency (principal); I51.7 Cardiomegaly; I34.0 Nonrheumatic mitral (valve) insufficiency; I27.20 Pulmonary hypertension, unspecified
CPT/HCPCS: 93306; Q9957

== ENCOUNTER → 2023-11-26 | Outpatient (CLI) | payer OTHER ==
--- NOTE | 2023-11-27 21:09 | US ---
EXAMINATION TYPE: US pelvis complete transvag DATE OF EXAM: 11/26/2023 COMPARISON: CLINICAL INDICATION: Female, 58 years old with history of N93.9 ABNORMAL UTERINE AND VAGINAL BLEEDING , UNSPE; Abnormal bleeding. TECHNIQUE: Transvaginal (TV) and Transabdominal (TA) . Transabdominal sonographic images of the pel vis were acquired. Transvaginal sonographic images were medically necessary to better assess the fol lowing anatomy: Ovaries, endometrium Date of LMP: Unknown, G0 EXAM MEASUREMENTS: Uterus: 4.9 x 2.9 x 3.1 cm Endometrial Stripe: 0.7 cm 1. Uterus: Anteverted Heterogenous in appearance. Circular hypoechoic region seen in left uterus= 1.0 x 0.9 x 1.0 cm. Large circular hypoechoic area seen = 3.9 x 3.5 x 3.6 cm with uncertain origin ( Uterine vs ovarian vs other) 2. Endometrium: wnl 3. Right Ovary: Obscured by overlying bowel gas 4. Left Ovary: Obscured by overlying bowel gas 5. Bilateral Adnexa: wnl 6. Posterior cul-de-sac: no free fluid IMPRESSION: 1. Uterine fibroids. 2. Possible complex cyst right adnexa. Follow-up recommended. 3. Consider pelvic MRI if additional would be of benefit.
== END | disposition home or self-care (01) ==
LOC: RADUSWWP 12:49
PROVIDERS: ATTEND Family Medicine
DX: D25.9 Leiomyoma of uterus, unspecified (principal); N93.9 Abnormal uterine and vaginal bleeding, unspecified
CPT/HCPCS: 76830; 76856

== ENCOUNTER → 2024-01-06 | Outpatient (CLI) | payer OTHER ==
--- NOTE | 2024-01-06 16:06 | P.SLEEP ---
History of Present Illness DATE: 01/06/2024 CONSULTATION/NEW PATIENT EVALUATION HISTORY OF PRESENT ILLNESS/SLEEP-WAKE EVALUATION: 58-year-old lady had been evaluated in the sleep center for obstructive sleep apnea hypopnea syndrome. Patient has history of obstructive sleep apnea hypopnea syndrome diagnosed in our institution. At that time patient had moderate close to severe obstructive sleep apnea hypopnea syndrome with oxygen gestation to 54.9%.I so patient in 2014 for follow-up visit at that time she was on treatment with CPAP but soon after that patient stopped using CPAP for different reasons. SLEEP SCHEDULE: Usually sleep schedule from 11 PM to 7 AM 7 days a week. FALLING ASLEEP: Sometimes patient has difficulties to fall asleep, has TV set and bedroom. DURING SLEEP: Patient sleeps on the back position with snoring and awakenings from sleep 2 times with nocturia. No history of hypnogogical hallucinations, sleep paralysis, or cataplexy. DURING THE DAY/WAKE STATE: In the morning patient wake up tired. [place] sleepiness scale is 3. Usually patient doesn't take naps. PAST MEDICAL HISTORY: Hypertension, glaucoma, coronary inflammation. PAST SURGICAL HISTORY: Cholecystectomy, bilateral surgical treatment for carpal tunnel syndrome. MEDICATIONS: Hydrochlorothiazide 25 mg once a day, meloxicam 15 mg once a day, eyedrops. SOCIAL HISTORY: Negative for smoking or using alcohol. FAMILY HISTORY: Heart problems, cancer, diabetes, mental illness. REVIEW OF SYSTEMS: Snoring, multiple awakenings from sleep. No fevers. No double vision. No recent chest pain. No shortness of breath. No abdominal pain. No bleeding episodes. No blood in urine. No seizure episodes. PHYSICAL EXAMINATION: GENERAL: A pleasant patient without any distress. VITAL SIGNS: BP 131/71 , HR 74 , RR 16 , weight 272.6 pounds, height 5 foot 3 inches, body mass index 48.1 . HEENT: PERRLA, EOMI. Evaluation of oropharynx showed tongue protrudes midline, low position of soft palate Mallampati 4. NECK: Supple. No JVD. Thyroid is not palpable. 17-3/4 inches in circumference. LUNGS: Clear to percussion and to auscultation. Good air exchange. No wheezing or rhonchi. HEART: S1, S2 regular. No murmurs, gallops or rubs. ABDOMEN: Soft and nontender. Bowel sounds are present. No organomegaly appreciated. Obese EXTREMITIES: No clubbing or cyanosis. DISTRIBUTED GENERATION PROJECT MANAGER: Awake, alert, and oriented x3. Cranial nerves 2 to 7 intact. There is no fasciculation or atrophy noted. No focal deficits observed. ASSESSMENT: 1. Snoring, multiple awakenings from sleep, extremely low position of soft palate Mallampati 4, wide neck 17 and three-quarter inches in circumference, history of obstructive sleep apnea in the past. Obstructive sleep apnea hypopnea syndrome. 2. Obesity, BMI 48.1. 3. Hypertension. 4. Glaucoma. 5 history of cornea inflammation. 6 . Status post cholecystectomy. 7. Status post surgical treatment for carpal tunnel syndrome bilaterally. PLAN: 1. Polysomnography for evaluation of patient's breathing during sleep. 2. Following plan after reading sleep study. 3. Preferable position during sleep on the side. 4. No driving if patient feels any sleepiness. Patient is aware of civil and criminal liability for unsafe driving. 5. Sleep hygiene with regular sleep time for at least 7.5-8 hours. 6. Watching and losing weight. Thank you very much for referring this patient for consultation. Sincerely, Valentín Du MD, PhD, FAASM. Diplomat of [place] [employer], Sleep Medicine Board by [employer] Supercharger Repair Supervisor of [facility] [place] Past Medical History Past Medical History: Eye Disorder Additional Past Medical History / Comment(s): glaucoma History of Any Multi-Drug Resistant Organisms: None Reported Past Surgical History: No Surgical Hx Reported Additional Past Surgical History / Comment(s): bone spurs rt heel,bibiana carapal tunnel, laser eye surgery Past Anesthesia/Blood Transfusion Reactions: No Reported Reaction Past Psychological History: No Psychological Hx Reported Smoking Status: Never smoker, Second hand smoke exposure Past Alcohol Use History: None Reported Past Drug Use History: None Reported - Past Family History Father Family Medical History: Eye Disorder, Myocardial Infarction ([place]) Additional Family Medical History / Comment(s): passed mi 68 yrs glaucoma, Mother Family Medical History: Cancer Additional Family Medical History / Comment(s): passed from leukemia when pt was a child Medications and Allergies Home Medications Medication Instructions Recorded Confirmed Type Bimatoprost [Lumigan] 1 drop BOTH EYES BID 06/11/14 08/13/22 History Brimonidine Tartrate [Alphagan P] 1 drop BOTH EYES HS 06/11/14 08/13/22 History Atorvastatin [Lipitor] 20 mg PO HS 08/05/22 08/13/22 History Cetirizine HCl [Zyrtec] 10 mg PO DAILY PRN 08/05/22 08/13/22 History Meloxicam [Mobic] 15 mg PO DAILY 08/05/22 08/13/22 History Allergies Allergy/AdvReac Type Severity Reaction Status Date / Time Penicillins Allergy Rash/Hives Verified 08/13/22 06:50 sulfamethoxazole Allergy Rapid Verified 08/13/22 06:50 [From Bactrim] Heart Rate Sleep Note - Sleep Note Sleep Note: Temperature: Pulse Rate: Respiratory Rate: Blood Pressure: SpO2: Height: Weight: BMI: Neck Circumference:
== END ==
LOC: 3 N SLEEP 15:18
PROVIDERS: ATTEND Internal Medicine
DX: G47.33 Obstructive sleep apnea (adult) (pediatric) (principal); G47.8 Other sleep disorders; E66.9 Obesity, unspecified; I10 Essential (primary) hypertension; H40.9 Unspecified glaucoma; Z98.890 Other specified postprocedural states; Z86.69 Personal history of other diseases of the nervous system and sense organs; Z88.2 Allergy status to sulfonamides; Z88.0 Allergy status to penicillin; Z68.42 Body mass index [BMI] 45.0-49.9, adult
CPT/HCPCS: 99211

== ENCOUNTER 2024-02-27 19:44 | Outpatient (CLI) | payer OTHER ==
--- NOTE | 2024-03-01 13:44 | P.PCN ---
Description of Procedure: POLYSOMNOGRAPHY REPORT PROCEDURE(S)/DATE(S): Polysomnography 02/27/2024 CLINICAL: Patient has been seen in the sleep center for evaluation of obstructive sleep apnea-hypopnea syndrome. Please see my consultation. Sleep study has been done for evaluation of patient breathing during the sleep. PROCEDURE: The standard montage for clinical polysomnography included the electroencephalogram, the electrooculogram, the mentalis surface electromyography and Lead II cardiography. The respiratory battery consisted of measurements of nasal/buccal air flow, pressure transducer measurements from nose, thoracic and/or abdominal effort and intercostal surface electromyography. Video monitoring has been done to check for any parasomnia events. Nocturnal oxyhemoglobin saturations were obtained by finger oximetry. Step-crump titration with positive airway pressure was utilized to control the respiratory events, if necessary. RESULTS: During the diagnostic sleep study sleep efficiency was extremely short 62.3%. Latency to sleep onset was normal 19.0 min. Sleep architecture showed stage NI was normal 7.6%, Delta sleep was normal 8.6%, REM sleep was short 10.8%. Respiratory channel showed 0 obstructive apneas, 0 mixed apneas, 0 central apneas, 4 hypopneas with lowest oxygen level 83%. Total apnea hypopnea index was 1.0. Heart rate was in the range between 62 and 72, average 66. EMG showed 0 periodic limb movements per hour. IMPRESSIONS: 1. No significant respiratory abnormalities have been documented during the sleep study, few abnormalities of respiration in REM sleep. 2. No significant periodic limb movements have been documented. Please see other impressions from consultation PLAN: 1. Aggressive losing weight program. 2. Sleep hygiene with regular time in bed for at least 7-1/2 hours. 3. No driving if feeling sleepiness. 4. I will see patient for follow-up visit to explain results of the test and recommendations. Thank you very much for allowing me to participate in the management of your patient. Sincerely, Valentín Du MD, PhD, FAASM. Diplomat of [place] [employer], Sleep Medicine Board by [place] [employer] Continuity Tester of [facility] [place]
== END 2024-02-28 05:45 | disposition home or self-care (01) ==
LOC: 3 N SLEEP 19:44
PROVIDERS: ATTEND Internal Medicine
DX: G47.33 Obstructive sleep apnea (adult) (pediatric) (principal); Z88.0 Allergy status to penicillin; Z88.2 Allergy status to sulfonamides
CPT/HCPCS: 95810

== ENCOUNTER → 2024-03-30 | Outpatient (CLI) | payer OTHER ==
--- NOTE | 2024-03-30 12:44 | P.PROGSL ---
Subjective DATE: 03/30/2024 FOLLOW UP VISIT. Patient returned to sleep center for follow-up visit to discuss results of polysomnogram and following plan. I discussed results of polysomnogram with patient in details. Very few hypopneas have been documented during the REM sleep. Total apnea hypopnea index was 1.0, which is in normal range. Sleep efficiency was significantly decreased to 62.3% and amount of REM sleep was significantly decreased. . [place] sleepiness scale is 4. MEDICATIONS: Please see below. During physical exam: GENERAL: A pleasant patient without any distress. VITAL SIGNS: Please see below, weight 272.8 pounds, BMI 48.1. HEENT: PERRLA, EOMI. NECK: Supple. No JVD. LUNGS: Clear to percussion and to auscultation. Good air exchange. No wheezing or rhonchi. HEART: S1, S2 regular. ABDOMEN: Soft and nontender. EXTREMITIES: No clubbing or cyanosis. CORNER TRIMMER OPERATOR: Awake, alert, and oriented x3. No focal deficit. Impressions: 1. Low sleep efficiency during polysomnogram. Sleep study did not show any significant obstructive sleep apnea hypopnea syndrome. Patient has history of obstructive sleep apnea hypopnea syndrome in moderate to severe range in the past. 2. Obesity, BMI 48.1. 3. Hypertension. 4. Glaucoma. 5. Status post cholecystectomy. 6. Status post surgical treatment for carpal tunnel syndrome. Plan: 1. Home sleep apnea test for relation of patient breathing during the sleep, because of low sleep efficiency during the polysomnogram. 2. Sleep hygiene with regular time in bed for at least 8 hours. 3. Losing weight 4. Precautions related to driving. No driving if feel any sleepiness. Patient is aware about civil and criminal liability for unsafe driving, promised to follow recommendations. 5. Following plan after reading home sleep apnea test. Thank you very much for allowing me to participate in the management of your patient. Valentín Du MD, PhD, FAASM. Diplomat of [place] [employer] Medicine, Sleep Medicine Board by [place] [employer] Edge Runner of [facility] [place] Objective - Vital Signs Vital Signs: Vital Signs Temp 98.5 F 03/30/24 12:11 Pulse 71 03/30/24 12:11 Resp 16 03/30/24 12:11 BP 146/84 03/30/24 12:11 Pulse Ox 96 05/16/24 12:11 FiO2 Intake & Output 03/29/24 03/30/24 03/30/24 18:59 06:59 18:59 Weight 123.604 kg Home Medications: Home Medications Medication Instructions Recorded Confirmed Type Bimatoprost [Lumigan] 1 drop BOTH EYES BID 06/11/14 03/30/24 History Brimonidine Tartrate [Alphagan P] 1 drop BOTH EYES HS 06/11/14 03/30/24 History Atorvastatin [Lipitor] 40 mg PO HS 08/05/22 03/30/24 History Meloxicam [Mobic] 15 mg PO DAILY 08/05/22 03/30/24 History Aspirin 81 mg PO DAILY 03/30/24 03/30/24 History Atropine Sulfate/Pf [Atropine 1% 1 drop BOTH EYES BID 03/30/24 03/30/24 History Eye Drops] hydroCHLOROthiazide 25 mg PO DAILY 03/30/24 03/30/24 History
[2024-03-30 13:08] VITALS: BP 146/84; PULSE 71; RESP 16; TEMP 98.5
== END ==
LOC: 3 N SLEEP 11:29
PROVIDERS: ATTEND Internal Medicine
DX: G47.33 Obstructive sleep apnea (adult) (pediatric) (principal); G47.8 Other sleep disorders; E66.9 Obesity, unspecified; I10 Essential (primary) hypertension; H40.9 Unspecified glaucoma; Z90.49 Acquired absence of other specified parts of digestive tract; Z68.42 Body mass index [BMI] 45.0-49.9, adult; Z88.0 Allergy status to penicillin; Z88.2 Allergy status to sulfonamides
CPT/HCPCS: 99212

== ENCOUNTER → 2024-04-12 | Outpatient (CLI) | payer OTHER ==
--- NOTE | 2024-04-13 12:17 | P.PCN ---
Description of Procedure: CLINICAL: A home sleep apnea test has been done for confirmation of possible obstructive sleep apnea-hypopnea syndrome. DESCRIPTION OF PROCEDURE: RESULTS: Recording time was 7 hours 46 minutes. Evaluation time was 5 hours 42 minutes. Evaluation time is sufficient for making conclusion about results of the test. Raw data of sleep recording has been reviewed and is adequate. Respiratory channel showed 26 apneas and 73 hypopneas. Apnea-hypopnea index was 17.4 per hour. Pulse rate in the range between minimum 52, maximum 108, average 64 by computer calculation. Lowest desaturation was 73%. IMPRESSION: 1. Moderate Obstructive Sleep Apnea Hypopnea Syndrome. Please see other impressions from consultation. PLAN: 1. The patient should have PAP titration for correction of respiratory abnormallities during sleep. 2. Sleep hygiene with regular time in bed for at least 8 hours. 3. Watching and losing weight. 4. No driving if feeling any sleepiness. Thank you very much for allowing me to participate in the management of your patient. Sincerely, Valentín Du MD, PhD, FAASM Diplomat of [employer] Sleep Medicine Board of [place] [employer] of Internal Medicine [facility] Director of [facility] [place]
== END ==
LOC: 3 N SLEEP 10:54
PROVIDERS: ATTEND Internal Medicine
DX: G47.33 Obstructive sleep apnea (adult) (pediatric) (principal); Z88.0 Allergy status to penicillin; Z88.2 Allergy status to sulfonamides

== ENCOUNTER → 2024-04-25 | Outpatient (CLI) | payer OTHER ==
--- NOTE | 2024-04-26 10:14 | MM ---
Reason for Exam: Screening (asymptomatic). Last mammogram was performed 1 year(s) and 1 month(s) ago. Patient History: Menarche at age 10. Patient has no children. Postmenopausal. Risk Values: Ronda 5 year model risk: 1.6%. NCI Lifetime model risk: 8.1%. Prior Study Comparison: 12/07/2019 Bilateral Screening Mammogram, [facility]. 01/19/2022 Bilateral Screening Mammogram, [facility]. 04/07/2023 Bilateral MG screening mammo w CAD, [facility]. Tissue Density: There are scattered areas of fibroglandular density. Findings: Analyzed By CAD. There is no suspicious group of microcalcifications or new suspicious mass in either breast. Bilateral small lymph nodes are seen. There are benign calcifications bilaterally. Overall Assessment: Benign, BI-RAD 2 Management: Screening Mammogram of both breasts in 1 year. . Patient should continue monthly self-breast exams. A clinical breast exam by your physician is recommended on an annual basis. This exam should not preclude additional follow-up of suspicious palpable abnormalities. Note on Ronda scores and lifetime risk: 1. A Ronda score greater than 3% is considered moderate risk. If this is the case, consider specialist referral to assess eligibility for a risk reducing agent. 2. If overall lifetime risk for the development of breast cancer is 20% or higher, the patient may qualify for future screening with alternating mammogram and breast MRI. Electronically signed and approved by: Jose Carlos Oneill M.D. Radiologis
== END | disposition home or self-care (01) ==
LOC: RADMAMWWP 12:20
PROVIDERS: ATTEND Obstetrics & Gynecology
DX: Z12.31 Encounter for screening mammogram for malignant neoplasm of breast (principal); Z78.0 Asymptomatic menopausal state
CPT/HCPCS: 77063; 77067

== ENCOUNTER → 2024-09-13 | Outpatient (CLI) | payer OTHER ==
[2024-09-13 16:24] VITALS: BP 130/66; PULSE 78; RESP 16; TEMP 98.4
--- NOTE | 2024-09-13 18:13 | P.PROGSL ---
Subjective DATE: 09/13/2024 FOLLOW UP VISIT. Patient with obstructive sleep apnea hypopnea syndrome return to sleep center for follow-up visit. Information from previous visit have been reviewed. Patient is trying to use CPAP equipment every night for the whole night [place] sleepiness scale is 6, which is in normal range. I checked information from PAP unit. PAP unit pressure 5-14, average 12.9 cm H2O. Usage is 50% and 47% for more then 4 hours, average 7 hours per night. Leak is significantly increased to 45.0 l/m. Apnea Hypopnea Index is 2.9, which is normal. MEDICATIONS have been reviewed, please see below. During physical exam: GENERAL: A pleasant patient without any distress. VITAL SIGNS: Please see below, weight is 270 lbs. HEENT: PERRLA, EOMI.low position of soft palate, Mallapati 3 . NECK: Supple. No JVD. LUNGS: Clear to percussion and to auscultation. Good air exchange. No wheezing or rhonchi. HEART: S1, S2 regular. ABDOMEN: Soft and nontender.[] EXTREMITIES: No clubbing or cyanosis. TRAFFIC MANAGER: Awake, alert, and oriented x3. No focal deficit. Impressions: 1. Obstructive sleep apnea-hypopnea syndrome. Patient feels better while using CPAP. Apnea hypopnea index is normal. 2. Hypertension. 3. Glaucoma. 4. Status post cholecystectomy. 5. Status post surgical treatment for carpal tunnel syndrome. Plan: 1. Continue using PAP equipment every night for the whole night. We will extend trial. For another 90 days 2. Sleep hygiene with regular time in bed for at least 7.5-8 hours 3. PAP unit should stay lower then position of the head. 4. Advised patient to remove all remaining water from humidifier canister daily and make it dry after each usage. Refill canister with fresh distilled water before each usage. 5. Watching weight. 6. Precautions related to driving. No driving if feel any sleepiness. 7. I will maintain prescription for PAP supplies including mask, tube, filters. 8. Follow up visit in 2-3 months or earlier if patient has any problems. Thank you very much for allowing me to participate in the management of your patient. Valentín Du MD, PhD, FAASM. Diplomat of [place] [employer] Sleep Medicine, Sleep Medicine Board by [place] [employer] Medicine Audio Video Technician of [facility] [place] cc: Alberto Heller DO Objective - Vital Signs Vital Signs: Vital Signs Temp 98.4 F 09/13/24 16:23 Pulse 78 09/13/24 16:23 Resp 16 09/13/24 16:23 BP 130/66 09/13/24 16:23 Pulse Ox 95 09/13/24 16:23 FiO2 Home Medications: Home Medications Medication Instructions Recorded Confirmed Type Bimatoprost [Lumigan] 1 drop BOTH EYES BID 06/11/14 03/30/24 History Brimonidine Tartrate [Alphagan P] 1 drop BOTH EYES HS 06/11/14 03/30/24 History Atorvastatin [Lipitor] 40 mg PO HS 08/05/22 03/30/24 History Meloxicam [Mobic] 15 mg PO DAILY 08/05/22 03/30/24 History Aspirin 81 mg PO DAILY 03/30/24 03/30/24 History Atropine Sulfate/Pf [Atropine 1% 1 drop BOTH EYES BID 03/30/24 03/30/24 History Eye Drops] hydroCHLOROthiazide 25 mg PO DAILY 03/30/24 03/30/24 History
== END ==
LOC: 3 N SLEEP 15:31
PROVIDERS: ATTEND Internal Medicine
CPT/HCPCS: 99212

== ENCOUNTER → 2025-02-08 | Outpatient (CLI) | payer OTHER ==
[2025-02-08 16:38] VITALS: BP 139/83; PULSE 100; RESP 16; TEMP 98.4
--- NOTE | 2025-02-08 17:40 | P.PROGSL ---
Subjective DATE: 02/08/2025 FOLLOW UP VISIT. Patient with obstructive sleep apnea hypopnea syndrome return to sleep center for follow-up visit. Information from previous visit have been reviewed. Patient is using PAP equipment every night for the whole night, getting PAP supplies in time. The patient does not have significant problems with the mask, PAP unit and humidification. [place] sleepiness scale is 3, which is normal. Patient still wakes up from sleep and has difficulties to initiate sleep again. I checked information from PAP unit. PAP unit pressure 5-14, average 13.8 cm H2O. Usage is 70% for more then 4 hours, average 6.3 hours per night. Leak is 25 l/m, which is in acceptable range. Apnea Hypopnea Index is 4.8, which is normal range, but possibly could be the reason for some awakenings during sleep. MEDICATIONS have been reviewed, please see below. During physical exam: GENERAL: A pleasant patient without any distress. VITAL SIGNS: Please see below, weight is 275 lbs. HEENT: PERRLA, EOMI.low position of soft palate, Mallapati 3. NECK: Supple. No JVD. LUNGS: Clear to percussion and to auscultation. Good air exchange. No wheezing or rhonchi. HEART: S1, S2 regular. ABDOMEN: Soft and nontender. Obese EXTREMITIES: No clubbing or cyanosis. FLEET DISPATCH MANAGER: Awake, alert, and oriented x3. No focal deficit. Impressions: 1. Obstructive sleep apnea-hypopnea syndrome. Patient demonstrated good compliance with treatment, benefiting from treatment. 2. Obesity, BMI 48.5, patient increased weight on 5 pounds comparing with previ ous visit. 3. Hypertension. 4. Glaucoma. 5. Status post cholecystectomy. 6. Status post surgical treatment for carpal tunnel syndrome. I changed regimen in AutoPap unit slightly up to the range 5-16 cm of water. Plan: 1. Continue using PAP equipment every night for the whole night. 2. Sleep hygiene with regular time in bed for at least 7.5-8 hours 3. PAP unit should stay lower then position of the head. 4. Advised patient to remove all remaining water from humidifier canister daily and make it dry after each usage. Refill canister with fresh distilled water before each usage. 5. Watching weight. 6. Precautions related to driving. No driving if feel any sleepiness. 7. I will maintain prescription for PAP supplies including mask, tube, filters. 8. Follow up visit in 2 months or earlier if patient has any problems. Thank you very much for allowing me to participate in the management of your patient. Valentín Du MD, PhD, FAASM. Diplomat of [place] [employer], Sleep Medicine Board by [place] [employer] Healthcare Liaison of [facility] [place] Objective - Vital Signs Vital Signs: Vital Signs Temp 98.4 F 02/08/25 16:37 Pulse 100 02/08/25 16:37 Resp 16 02/08/25 16:37 BP 139/83 02/08/25 16:37 Pulse Ox 95 02/08/25 16:37 FiO2 Intake & Output 02/07/25 02/08/25 02/08/25 18:59 06:59 18:59 Weight 124.738 kg Home Medications: Home Medications Medication Instructions Recorded Confirmed Type Bimatoprost [Lumigan] 1 drop BOTH EYES BID 06/11/14 03/30/24 History Brimonidine Tartrate [Alphagan P] 1 drop BOTH EYES BID 06/11/14 02/08/25 History Atorvastatin [Lipitor] 40 mg PO HS 08/05/22 02/08/25 History Meloxicam [Mobic] 15 mg PO DAILY 08/05/22 02/08/25 History Aspirin 81 mg PO DAILY 03/30/24 02/08/25 History Atropine Sulfate/Pf [Atropine 1% 1 drop BOTH EYES BID 03/30/24 03/30/24 History Eye Drops] hydroCHLOROthiazide 25 mg PO DAILY 03/30/24 02/08/25 History Ofloxacin 0.3% Otic Soln [Floxin 0.3 % OPHTHALMIC TID 02/08/25 02/08/25 History 0.3% Otic Soln] valACYclovir HCL [Valacyclovir] 500 mg PO BID 02/08/25 02/08/25 History
== END ==
LOC: 3 N SLEEP 16:03
PROVIDERS: ATTEND Internal Medicine
DX: G47.33 Obstructive sleep apnea (adult) (pediatric) (principal); H40.9 Unspecified glaucoma; I10 Essential (primary) hypertension; E66.9 Obesity, unspecified; Z68.42 Body mass index [BMI] 45.0-49.9, adult; Z88.0 Allergy status to penicillin; Z88.2 Allergy status to sulfonamides; Z90.49 Acquired absence of other specified parts of digestive tract; Z98.890 Other specified postprocedural states
CPT/HCPCS: 99212

== ENCOUNTER → 2025-06-13 | Outpatient (CLI) | payer OTHER ==
--- NOTE | 2025-06-13 17:12 | MM ---
Reason for Exam: Screening (asymptomatic). Last mammogram was performed 1 year(s) and 1 month(s) ago. Patient History: Menarche at age 10. Patient has no children. Postmenopausal. Risk Values: Ronda 5 year model risk: 1.6%. NCI Lifetime model risk: 7.9%. Prior Study Comparison: 01/19/2022 Bilateral Screening Mammogram, [facility]. 04/07/2023 Bilateral MG screening mammo w CAD, [facility]. 04/25/2024 Bilateral MG 3D screening mammo w/cad, [facility]. Tissue Density: The breasts are almost entirely fatty. Findings: Analyzed By CAD. Chronic bilateral nodularity. Redemonstrated few benign bilateral oil cyst calcifications. There is no suspicious group of microcalcifications or new suspicious mass in either breast. Overall Assessment: Benign, BI-RAD 2 Management: Screening Mammogram of both breasts in 1 year. Patient should continue monthly self-breast exams. A clinical breast exam by your physician is recommended on an annual basis. This exam should not preclude additional follow-up of suspicious palpable abnormalities. Note on Ronda scores and lifetime risk: 1. A Ronda score greater than 3% is considered moderate risk. If this is the case, consider specialist referral to assess eligibility for a risk reducing agent. 2. If overall lifetime risk for the development of breast cancer is 20% or higher, the patient may qualify for future screening with alternating mammogram and breast MRI. [facility], , 06/13/2025 5:09 PM. Electronically signed and approved by: Jenna Min M.D. Radiologist
== END | disposition home or self-care (01) ==
LOC: RADMAMWWP 12:53
PROVIDERS: ATTEND Family Medicine
DX: Z12.31 Encounter for screening mammogram for malignant neoplasm of breast (principal); R92.313 Mammographic fatty tissue density, bilateral breasts; Z78.0 Asymptomatic menopausal state
CPT/HCPCS: 77063; 77067